=== PATIENT | female | born 1955 | race Caucasian/White ===

== ENCOUNTER 2024-07-01 09:13 | Outpatient (REF) | payer MEDICARE, SELFPAY ==
--- NOTE | ~2024-07-01 | XR_ITS ---
CLINICAL HISTORY: M25.572 - Pain in left ankle and joints of left foot 3 views left ankle Comparison: None Findings: No fractures, subluxations or dislocations. Ankle mortise intact. Normal plafond. No osteochondral lesions. Calcaneus and subtalar joint intact. There is spurring of the medial and lateral malleolus. Posterior and plantar calcaneal enthesophytes. Diffuse soft tissue swelling. Soft tissue calcifications along the dorsum of the foot. Normal pre Achilles fat pad. No radiopaque foreign body. Impression: 1. Soft tissue swelling. Degenerative changes as described. This document has been electronically signed by: Karri Ayers MD on 07/01/2024 10:37:35
--- NOTE | ~2024-07-01 | XR_ITS ---
CLINICAL HISTORY: M79.672 - Pain in left foot 3 views left foot Comparison: None Findings: No fractures, subluxations or dislocations. No periostitis or bony destruction. Joint intervals are preserved. No marginal erosions or overhanging osteophytes. Calcaneus and subtalar joint intact. Soft tissue calcifications along the dorsum of the foot. Posterior and plantar calcaneal enthesophytes. Mild soft tissue swelling. Normal pre-Achilles fat pad. No radiopaque foreign body. Impression: 1. No acute fractures or malalignment. Probable mild soft tissue swelling. 2. Posterior and plantar calcaneal enthesophytes. This document has been electronically signed by: Karri Ayers MD on 07/01/2024 11:04:19
== END 2024-07-01 09:14 | disposition home or self-care (01) ==
LOC: HO.HMGCX 09:13
PROVIDERS: Visit Provider Physician Assistant
DX: M25.572 Pain in left ankle and joints of left foot (principal)
CPT/HCPCS: 73610; 73630; 99212

== ENCOUNTER 2024-07-01 09:13 | Outpatient (AMB) | payer MEDICARE, SELFPAY ==
[2024-07-01 09:54] VITALS: BP 136/90; PULSE 86; TEMP 36.7; O2SAT 98; BMI 26.6
--- NOTE | 2024-07-01 09:54 | AM.OFFWIN_ITS ---
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 Patient Tobacco Use Status: Never used Tobacco Allergies dihydroergotamine Allergy (Mild, Verified 07/01/24 09:56) Anaphylaxis Do you need a note to return to daycare/school/sports/work: No PFSH Social History Patient Tobacco Use Status: Never used Tobacco Review of Systems [facility] [place] arthralgias and Reports joint swelling Physical Exam Vital Signs: Last Vital Signs Temp 98.0 F 07/01/24 09:54 Pulse 86 07/01/24 09:54 BP 136/90 H 07/01/24 09:54 Pulse Ox 98 07/01/24 09:54 Oxygen Delivery Method Room Air 07/01/24 09:54 BMI result Body Mass Index 26.6 Const General: cooperative, healthy appearing, no acute distress and alert Orientation/consciousness: patient oriented x3 Limitations: no limitations HEENT Head: Yes normal to inspection Ears: hearing grossly normal bilaterally General nose exam: Normal external nose present Resp Effort & Inspection: normal respiratory effort and able to speak in complete sentences Cardio Rate: regular rate Skin General skin exam: no rashes or lesions noted Neuro General: patient oriented x3 Extrem Other: swelling and tenderness to palpation over the lateral malleolus. tenderness to palpation with dorsum of the foot General: Yes normal to inspection Assessment & Plan Assessment & Plan (1) Right ankle pain: Code(s): M25.571 - Pain in right ankle and joints of right foot Qualifiers: Chronicity: acute Qualified Code(s): M25.571 - Pain in right ankle and joints of right foot Plan: Right Ankle Sprain: - Patient sustained right ankle injury after falling on stairs four days ago - X-ray shows no obvious fracture - Physical examination reveals swelling and pain above the ankle and into the big toe - Tenderness with palpation above the ankle - Given mechanism of injury and physical findings, high ankle sprain suspected, possibly involving disruption of syndesmotic ligament between tibia and fibula - x-rays show no acute abnormalities on my interpretation Plan: - Apply air cast to right ankle - Recommend ankle range of motion exercises - Advise follow-up with orthopedist as needed - Continue ibuprofen 600 mg (dose and frequency not specified) - If symptoms do not improve, consider CT imaging for further evaluation Orders: Orders XR ankle LT min 3V Today M25.572 - Pain in left ankle and joints of left foot Coding Level of Care Code Est Pt Level 5 (87170) Diagnoses Acute right ankle pain M25.571 Chronicity: acute
== END 2024-07-01 10:58 | disposition home or self-care (01) ==
PROVIDERS: Visit Provider Physician Assistant
DX: M25.571 Pain in right ankle and joints of right foot (principal)

== ENCOUNTER → 2024-07-01 10:06 | Outpatient (BNV) | payer MEDICARE, SELFPAY | PROVIDERS: Visit Provider Radiology Diagnostic Radiology | DX: M79.672 Pain in left foot (principal); M25.572 Pain in left ankle and joints of left foot | CPT/HCPCS: 73610; 73630 ==